=== PATIENT | female | born 1985 | race Two or more races ===

== ENCOUNTER 2020-11-07 14:09 | Emergency (ER) | payer OTHER ==
[~2020-11-07] VITALS: Ht 172.7 cm; Wt 135.2 kg
[2020-11-07] MEDS ORDERED: LISINOPRIL20 MG PO (14:32)
[2020-11-07] MEDS ORDERED: KETO10TA2 PO (19:39)
[2020-11-07] MEDS ORDERED: SKELAXIN800 MG PO (19:39)
== END 2020-11-07 19:45 | disposition home or self-care (01) ==
LOC: ER 14:09
DX: M79.631 Pain in right forearm (principal)